=== PATIENT | female | born 2000 | race American Indian/Alaskan Native ===

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

== ENCOUNTER 2020-12-08 01:25 | Emergency (ER) | payer BC ==
[2020-12-08 02:15] VITALS: BP 125/63
--- NOTE | 2020-12-08 03:23 | Emergency Department Report ---
ED General Adult HPI - General Chief complaint: Upper Respiratory Infection Stated complaint: NASAL PRESSURE;HEADACHE Time Seen by Provider: 12/08/20 03:03 Source: patient Mode of arrival: Ambulatory Limitations: No Limitations - History of Present Illness Initial comments: 20 yo AA F pt presents with complaints of sinus congestion and body aches and ch ills x 4 days. She denies any fever, but admits to a mild productive cough. No hemoptysis, chest pain, or SOB per pt. Pt states she has tried flonase, antihistamines, thera flu and nasal saline without relief. Ibuprofen temporarily relieves facial pressure and pain. Severity scale (0 -10): 6 Quality: aching Consistency: constant - Related Data Previous Rx's Medication Instructions Recorded Last Taken Type Cetirizine HCl [ZyrTEC] 10 mg PO DAILY #30 capsule 11/07/18 Unknown Rx Fluticasone [Flonase] 1 spray NS QDAY #1 bottle 11/07/18 Unknown Rx predniSONE [Deltasone] 20 mg PO DAILY #5 tablet 11/07/18 Unknown Rx Azithromycin [Zithromax Z-MILENA] 0 mg PO DAILY #6 tab 12/08/20 Unknown Rx Prednisone [predniSONE 10 mg 10 mg PO .TAPER #1 tab.ds.pk 12/08/20 Unknown Rx (6-Day Pack, 21 Tabs)] guaiFENesin [Guaifenesin] 1,200 mg PO BID PRN #14 tab.er.12h 12/08/20 Unknown Rx Allergies Allergy/AdvReac Type Severity Reaction Status Date / Time apple Allergy Itching Verified 12/06/19 17:18 avocado Allergy Itching Verified 12/06/19 17:18 egg Allergy Rash Verified 12/06/19 17:18 pecan nut Allergy Itching Verified 12/06/19 17:18 shellfish derived Allergy Unknown Verified 12/06/19 17:18 walnut Allergy Itching Verified 12/06/19 17:18 ED Review of Systems ROS: Stated complaint: NASAL PRESSURE;HEADACHE Other details as noted in HPI Constitutional: chills, malaise. denies: diaphoresis, fever, weakness ENT: throat pain. denies: ear pain Respiratory: cough. denies: shortness of breath Cardiovascular: denies: chest pain Gastrointestinal: denies: nausea, vomiting Skin: denies: rash, lesions Neurological: headache (no current SALINAS per pt ) Hematological/Lymphatic: denies: swollen glands ED Past Medical Hx - Past Medical History Previous Medical History?: No - Social History Smoking Status: Never Smoker - Medications Home Medications: Home Medications Medication Instructions Recorded Confirmed Last Taken Type Cetirizine HCl [ZyrTEC] 10 mg PO DAILY #30 capsule 11/07/18 Unknown Rx Fluticasone [Flonase] 1 spray NS QDAY #1 bottle 11/07/18 Unknown Rx predniSONE [Deltasone] 20 mg PO DAILY #5 tablet 11/07/18 Unknown Rx Azithromycin [Zithromax Z-MILENA] 0 mg PO DAILY #6 tab 12/08/20 Unknown Rx Prednisone [predniSONE 10 mg 10 mg PO .TAPER #1 tab.ds.pk 12/08/20 Unknown Rx (6-Day Pack, 21 Tabs)] guaiFENesin [Guaifenesin] 1,200 mg PO BID PRN #14 tab.er.12h 12/08/20 Unknown Rx ED Physical Exam - General Limitations: No Limitations General appearance: alert, in no apparent distress - Head Head exam: Present: atraumatic, normocephalic - Eye Eye exam: Present: normal appearance - ENT ENT exam: Present: normal exam, other (ttp overal bilateral maxillary sinuses noted without swelling or skin changes noted) - Expanded ENT Exam Expanded Throat exam: Positive: tonsillar erythema, other (post nasal drainage noted). Negative: tonsillomegaly, tonsillar exudate, R peritonsillar mass, L peritonsillar mass - Neck Neck exam: Present: normal inspection, full ROM. Absent: tenderness, lymphadenopathy - Respiratory Respiratory exam: Absent: respiratory distress - Cardiovascular Cardiovascular Exam: Present: regular rate, normal rhythm - Neurological Exam Neurological exam: Present: alert, oriented X3 - Psychiatric Psychiatric exam: Present: normal affect, normal mood - Skin Skin exam: Present: warm, dry, intact, normal color. Absent: rash ED Course Vital Signs 12/08/20 02:12 Temperature 98.2 F Pulse Rate 82 Respiratory 16 Rate Blood Pressure 125/63 O2 Sat by Pulse 98 Oximetry ED Medical Decision Making - Medical Decision Making 20 yo AA F pt presents with complaints of sinus congestion and body aches and chills x 4 days. She denies any fever, but admits to a mild productive cough. No hemoptysis, chest pain, or SOB per pt. Pt states she has tried flonase, antihistamines, thera flu and nasal saline without relief. Ibuprofen temporarily relieves facial pressure and pain. Exam and history consistent with sinusitis. Vitals are wnl. Pt to f/u with PCP in 3-5 days. Discussed signs and symptoms that should prompt immediate return to the ED in detail with pt who verbalizes understanding. Critical care attestation.: If time is entered above; I have spent that time in minutes in the direct care of this critically ill patient, excluding procedure time. ED Disposition Clinical Impression: Acute sinus infection Disposition: TO HOME OR SELFCARE Is pt being admited?: No Condition: Stable Instructions: Sinusitis, Adult Prescriptions: guaiFENesin [Guaifenesin] 1,200 mg PO BID PRN #14 tab.er.12h PRN Reason: Congestion Prednisone [predniSONE 10 mg (6-Day Pack, 21 Tabs)] 10 mg PO .TAPER #1 tab.ds.pk Azithromycin [Zithromax Z-MILENA] 0 mg PO DAILY #6 tab Referrals: PRIMARY CARE, [Primary Care Provider] - 3-5 Days Forms: Work/School Release Form(ED)
== END 2020-12-08 03:21 | disposition home or self-care (01) ==
LOC: ED 01:25
DX: J01.90 Acute sinusitis, unspecified (principal); Z91.018 Allergy to other foods; Z91.012 Allergy to eggs; Z91.013 Allergy to seafood; Z79.899 Other long term (current) drug therapy
CPT/HCPCS: 99282